=== PATIENT | female | born 1975 | race Caucasian/White ===

== ENCOUNTER 2017-04-06 21:29 | Emergency (ER) | payer SELFPAY ==
[2017-04-06 22:34] LABS: CHLORIDE,CL 102 mmol/L (101-111); SODIUM,NA 135 mmol/L (135-145)
[2017-04-06 22:45] VITALS: BP 119/64
[2017-04-06] MEDS ORDERED: Phenazopyridine 95 MG Tab PO ONE (22:59)
[2017-04-06] MEDS ORDERED: Ondansetron 4 MG Tab.DIS PO ONE (22:59)
[2017-04-06] MEDS ORDERED: Ciprofloxacin 500 MG Tab PO ONE (22:59)
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
== END 2017-04-06 23:15 | disposition home or self-care (01) ==
LOC: DL.ED 21:29
DX: N39.0 Urinary tract infection, site not specified (principal); F41.9 Anxiety disorder, unspecified; F32.9 Major depressive disorder, single episode, unspecified; Z90.49 Acquired absence of other specified parts of digestive tract; F17.210 Nicotine dependence, cigarettes, uncomplicated; Z88.8 Allergy status to other drugs, medicaments and biological substances; Z88.6 Allergy status to analgesic agent
CPT/HCPCS: 36415; 80053; 80305; 81001; 85025; 99283; A9270

== ENCOUNTER 2018-01-10 17:03 | Emergency (ER) | payer SELFPAY ==
[2018-01-10 17:13] VITALS: BP 132/79
[2018-01-10] MEDS ORDERED: Ondansetron 4 MG/2 ML SDV IV ONE (17:34)
[2018-01-10] MEDS ORDERED: HYDROmorphone 1 MG/ML Syringe IVPUSH ONE ×2 (17:34→19:41)
[2018-01-10] MEDS ORDERED: Sodium Chloride 0.9% 10 ML Syringe FLUSH PRN (17:34)
[2018-01-10 18:35] LABS: CHLORIDE,CL 105 mmol/L (101-111); SODIUM,NA 136 mmol/L (135-145)
--- NOTE | 2018-01-10 19:10 | PCM.PRNOTE ---
- Free Text/Narrative Note: Pt here with complaints of back pain. History of nephrolithiasis. ED Rn's unable to obtain IV. Upon arrival, pt is lying in bed, c/o pain 7/10 to back. Very pleasant and tolerant. First attempt with 22 gauge to left hand was unsuccessful. Second attempt, using a 22 gauge angiocath to right hand after cleaning area with alcohol was successful. Flushes with difficulty and pt's hand blanches up to wrist and forearm. Pt says she tastes the saline flush and that this reaction is normal whenever an IV is placed in her hand. Of note, pt has red hair. IV was secured with tegaderm and tape. RN was notified. RN gave medications through IV and pt declared she was having pain relief. Will return if/when this IV fails.
[2018-01-10] MEDS ORDERED: Phenazopyridine 95 MG Tab PO ONE (19:40)
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
== END 2018-01-10 20:07 | disposition home or self-care (01) ==
LOC: DL.ED 17:03
DX: M54.9 Dorsalgia, unspecified (principal); R30.0 Dysuria; R31.29 Other microscopic hematuria; R10.9 Unspecified abdominal pain; F17.210 Nicotine dependence, cigarettes, uncomplicated; Z88.8 Allergy status to other drugs, medicaments and biological substances; Z88.5 Allergy status to narcotic agent
CPT/HCPCS: 36415; 74176; 80053; 81001; 81025; 85025; 96374; 96375; 99284; A9270; J1170; J2405; 36410

== ENCOUNTER 2018-01-25 17:48 | Emergency (ER) | payer SELFPAY ==
[2018-01-25 17:54] VITALS: BP 114/51
[2018-01-25] MEDS ORDERED: Gabapentin 400 MG Cap PO ONE (18:05)
[2018-01-25] MEDS ORDERED: levETIRAcetam 500 MG Tab PO ONE (18:07)
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
== END 2018-01-25 18:16 | disposition home or self-care (01) ==
LOC: DL.ED 17:48
DX: Z76.0 Encounter for issue of repeat prescription (principal); R56.9 Unspecified convulsions; F32.9 Major depressive disorder, single episode, unspecified; F17.210 Nicotine dependence, cigarettes, uncomplicated; Z88.1 Allergy status to other antibiotic agents; Z88.6 Allergy status to analgesic agent
CPT/HCPCS: 99283; A9270

== ENCOUNTER 2019-04-02 22:01 | Emergency (ER) | payer SELFPAY ==
[2019-04-02 22:33] VITALS: BP 142/87
== END 2019-04-02 23:05 | disposition left against medical advice (07) ==
LOC: DL.ED 22:01
DX: Z53.21 Procedure and treatment not carried out due to patient leaving prior to being seen by health care provider (principal)

== ENCOUNTER 2020-05-02 10:37 | Emergency (ER) | payer MEDICAID ==
[2020-05-02 11:01] VITALS: BP 101/48; PULSE 81
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
[2020-05-02] MEDS: Sodium Chloride 0.9% 10 ML Syringe FLUSH PRN (12:00)
[2020-05-02] MEDS: Ondansetron 4 MG/2 ML SDV IV ONE (12:10)
[2020-05-02] MEDS: Piperacillin/Tazobactam 3.375 GM in Sodium Chloride 0.9% 100 ML IV ONE (12:13)
--- NOTE | 2020-05-02 12:14 | PCM.PRNOTE ---
- Free Text/Narrative Note: Iv start Called to ED to assist with IV start. 22ga PIV Right forearm. Blood drawn for lab. Sterile dressing applied. Pt. tolerated well.
[2020-05-02 12:35] LABS: ANION GAP 12.5 mEq/L (7-13); CHLORIDE,CL 104 mmol/L (98-107); SODIUM,NA 140 mmol/L (136-145)
[2020-05-02] MEDS: levETIRAcetam 500 MG Tab PO ONE (13:41)
== END 2020-05-02 13:35 | disposition home or self-care (01) ==
LOC: DL.ED 10:37
DX: N39.0 Urinary tract infection, site not specified (principal); F41.9 Anxiety disorder, unspecified; F32.9 Major depressive disorder, single episode, unspecified; Z88.6 Allergy status to analgesic agent; Z88.1 Allergy status to other antibiotic agents; Z79.899 Other long term (current) drug therapy
CPT/HCPCS: 36415; 80053; 81001; 81025; 85025; 87086; 96365; 96375; 99283; J2405; J2543; J7050

== ENCOUNTER 2020-05-03 00:01 | Inpatient (IN) | payer MEDICAID ==
[2020-05-03] MEDS ORDERED: Ondansetron 4 MG Tab.DIS PO PRN (00:35)
[2020-05-03] MEDS ORDERED: Sodium Chloride 0.9% 10 ML Syringe FLUSH PRN (00:35)
[2020-05-03] MEDS ORDERED: Ibuprofen 400 MG Tab PO PRN (00:35)
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
[2020-05-03] MEDS: Nicotine 14 MG/24 Hr Patch TRDERM SCH ×2 (01:28→09:09)
[2020-05-03] MEDS: Zolpidem 5 MG Tab PO PRN (01:29)
[2020-05-03] MEDS: Sodium Chloride 0.9% 500 ML IV SCH ×2 (02:12→23:58)
[2020-05-03] MEDS ORDERED: Piperacillin/Tazobactam 3.375 GM in Sodium Chloride 0.9% 100 ML IV SCH (04:00)
--- NOTE | 2020-05-03 04:27 | PCM.PRNOTE ---
- Free Text/Narrative Note: IV Start Called to nursing floor to place difficult IV. (Previously placed IV removed upon discharge from ER) Using ultrasound guidance the Left deep cephalic vein was identified. Local 1% lidocaine skin wheal. #20 ga 1.88 inch IV catheter placed into vessel. Blood aspirated. Flushed with normal saline. Clean and dry OP site placed. Secured with additional tape. Patient tolerated well.
[2020-05-03 06:04] LABS: ANION GAP 11.4 mEq/L (7-13); CHLORIDE,CL 104 mmol/L (98-107); SODIUM,NA 141 mmol/L (136-145)
[2020-05-03] MEDS: Heparin Sodium 5,000 Units/ML Vial SUBCUT SCH ×3 (06:05→21:48)
[2020-05-03] MEDS ORDERED: [UNRECOGNIZED DRUG - OTHER] SL SCH (09:00)
[2020-05-03] MEDS ORDERED: BUPRENORPHINE HCL SL SCH (09:00)
[2020-05-03] MEDS ORDERED: NALOXONE HCL SL SCH (09:00)
[2020-05-03] MEDS: Gabapentin 400 MG Cap PO SCH ×3 (09:08→21:16)
[2020-05-03] MEDS: levETIRAcetam 500 MG Tab PO SCH ×2 (09:08→21:15)
[2020-05-03] MEDS: FLUoxetine 10 MG Cap PO SCH (09:08)
[2020-05-03] MEDS ORDERED: ETODOLAC 400 MG PO PRN (09:16)
[2020-05-03] MEDS ORDERED: Buprenorphine 8 MG Tab.SL SL ONE (10:00)
[2020-05-03] MEDS ORDERED: Potassium Chloride 10 MEQ Tab.ER PO ONE (10:00)
[2020-05-03] MEDS: Piperacillin/Tazobactam 3.375 GM in Sodium Chloride 0.9% 100 ML IV SCH ×3 (13:12→23:59)
[2020-05-03] MEDS: Buprenorphine 8 MG Tab.SL SL SCH ×2 (16:32→21:14)
[2020-05-04] MEDS: Zolpidem 5 MG Tab PO PRN (00:48)
[2020-05-04] MEDS: Piperacillin/Tazobactam 3.375 GM in Sodium Chloride 0.9% 100 ML IV SCH ×4 (05:48→23:52)
[2020-05-04] MEDS: Heparin Sodium 5,000 Units/ML Vial SUBCUT SCH ×3 (05:49→21:58)
[2020-05-04 06:39] LABS: ANION GAP 11.2 mEq/L (7-13); CHLORIDE,CL 107 mmol/L (98-107); SODIUM,NA 142 mmol/L (136-145)
[2020-05-04] MEDS: Gabapentin 400 MG Cap PO SCH ×3 (09:35→20:35)
[2020-05-04] MEDS: FLUoxetine 10 MG Cap PO SCH (09:35)
[2020-05-04] MEDS: Buprenorphine 8 MG Tab.SL SL SCH ×3 (09:36→20:35)
[2020-05-04] MEDS: levETIRAcetam 500 MG Tab PO SCH ×2 (09:36→20:34)
[2020-05-04] MEDS: Nicotine 14 MG/24 Hr Patch TRDERM SCH (09:37)
--- NOTE | 2020-05-04 11:16 | PCM.PN ---
- General Info Date of Service: 05/04/20 Subjective Update: less dysuria, no fever no cp, mild lower back pain, no associated numbness, has been chronic Functional Status: Reports: Tolerating Diet - Review of Systems General: Denies: Fever Pulmonary: Denies: Shortness of Breath Cardiovascular: Denies: Chest Pain Gastrointestinal: Denies: Abdominal Pain Genitourinary: Reports: Dysuria, Burning - Patient Data Vitals - Most Recent: Last Vital Signs Temp 97.2 F 05/04/20 08:00 Pulse 55 L 05/04/20 08:00 Resp 18 05/04/20 08:00 BP 89/54 L 05/04/20 08:00 Pulse Ox 98 05/04/20 08:00 Weight - Most Recent: 125 lb I&O - Last 24 Hours: Intake & Output 05/03/20 05/04/20 05/04/20 22:59 06:59 14:59 Intake Total 700 96 550 Output Total 1400 800 Balance -700 96 -250 Lab Results Last 24 Hours: Laboratory Results - last 24 hr 05/04/20 05/04/20 Range/Units 06:12 06:12 WBC 7.1 (5.0-10.0) 10^3/uL RBC 3.69 L (4.2-5.4) 10^6/uL Hgb 11.6 L (12.0-16.0) g/dL Hct 35.9 L (37.0-47.0) % MCV 97.3 (80-100) fL MCH 31.4 (27.0-34.0) pg MCHC 32.3 L (33.0-35.0) g/dL Plt Count 292 (150-450) 10^3/uL Neut % (Auto) 49.9 (42.2-75.2) % Lymph % (Auto) 41.7 (20.5-50.1) % [place] % (Auto) 5.5 (2-8) % Eos % (Auto) 2.5 (1.0-3.0) % Baso % (Auto) 0.4 (0.0-1.0) % Sodium 142 (136-145) mmol/L Potassium 4.2 (3.5-5.1) mmol/L Chloride 107 (98-107) mmol/L Carbon Dioxide 28 (21-32) mmol/L Anion Gap 11.2 (7-13) mEq/L BUN 11 (7-18) mg/dL Creatinine 0.84 (0.55-1.02) mg/dL Est Cr Clr Drug Dosing 65.84 mL/min Estimated GFR (MDRD) > 60 Glucose 101 H (74-99) mg/dL Calcium 7.7 L (8.5-10.1) mg/dL Jaleel Results Last 24 Hours: Microbiology 05/03/20 00:46 Urine Culture - Preliminary Urine, Clean Catch NO GROWTH AFTER 1 DAY Med Orders - Current: Current Medications Buprenorphine (Subutex) 4 mg SL TID [facility] Last Admin: 05/04/20 09:36 Dose: 4 mg Fluoxetine HCl (Prozac) 10 mg PO DAILY [facility] Last Admin: 05/04/20 09:35 Dose: 10 mg Gabapentin (Neurontin) 400 mg PO TID [facility] Last Admin: 05/04/20 09:35 Dose: 400 mg Heparin Sodium (Porcine) (Heparin Sodium) 5,000 units SUBCUT Q8HR [facility] Last Admin: 05/04/20 05:49 Dose: 5,000 units Sodium Chloride (Normal Saline) 500 mls @ 30 mls/hr IV ASDIRECTED [facility] Last Admin: 05/03/20 23:58 Dose: 30 mls/hr Piperacillin Sod/Tazobactam (Sod 3.375 gm/ Sodium Chloride) 100 mls @ 200 mls/ hr IV Q6HR [facility] Last Admin: 05/04/20 05:48 Dose: 100 mls/hr Levetiracetam (Keppra) 750 mg PO BID [facility] Last Admin: 05/04/20 09:36 Dose: 750 mg Miscellaneous Information (Check Patch) 1 ea TRDERM BEDTIME [facility] Last Admin: 05/03/20 21:17 Dose: Not Given Nicotine (Habitrol) 14 mg TRDERM DAILY [facility] Last Admin: 05/04/20 09:37 Dose: 14 mg Non-Formulary Medication (Buprenorphine Hcl/Naloxone Hcl [Buprenorp-Nalox 8-2 Mg Sl Film]) 0.5 tab SL TID [facility] Non-Formulary Medication (Etodolac [Etodolac]) 400 mg PO BID PRN PRN Reason: Pain Ondansetron HCl (Zofran Odt) 4 mg PO Q6H PRN PRN Reason: nausea, able to take PO Last Admin: 05/04/20 09:41 Dose: 4 mg Sodium Chloride (Saline Flush) 10 ml FLUSH ASDIRECTED PRN PRN Reason: Keep Vein Open Zolpidem Tartrate (Ambien) 5 mg PO BEDTIME PRN PRN Reason: Sleep Last Admin: 05/04/20 00:48 Dose: 5 mg Discontinued Medications Buprenorphine (Subutex) 4 mg SL ONETIME ONE Stop: 05/03/20 10:01 Last Admin: 05/03/20 10:11 Dose: 4 mg Piperacillin Sod/Tazobactam (Sod 3.375 gm/ Sodium Chloride) 100 mls @ 200 mls/ hr IV Q6H [facility] Last Admin: 05/03/20 04:32 Dose: 200 mls/hr Ibuprofen (Motrin) 400 mg PO Q8H PRN PRN Reason: Pain (moderate 4-6) Potassium Chloride (Klor-Con 10) 40 meq PO ONETIME ONE Stop: 05/03/20 10:01 Last Admin: 05/03/20 10:11 Dose: 40 meq - Exam General: Alert, Oriented Neck: Supple Lungs: Clear to Auscultation, Normal Respiratory Effort GI/Abdominal Exam: Normal Bowel Sounds, Soft, Non-Tender Extremities: No Pedal Edema Sepsis Event Note - Evaluation Sepsis Screening Result: No Definite Risk - Focused Exam Vital Signs: Vital Signs Temp Pulse Resp BP BP Pulse Ox 05/04/20 08:00 97.2 F 55 L 18 89/54 L 98 05/04/20 00:00 97 F 57 L 16 99/62 98 Date Exam was Performed: 05/04/20 Time Exam was Performed: 11:14 - Problem List & Annotations (1) History of seizure SNOMED Code(s): 687816809 Code(s): Z87.898 - PERSONAL HISTORY OF OTHER SPECIFIED CONDITIONS Status: Acute Current Visit: No (2) UTI, Urinary tract infectious disease SNOMED Code(s): 28338648 Code(s): N39.0 - URINARY TRACT INFECTION, SITE NOT SPECIFIED Status: Acute Current Visit: No - Problem List Review Problem List Initiated/Reviewed/Updated: Yes - My Orders Last 24 Hours: My Active Orders 05/03/20 12:00 Piperacillin/Tazobactam [Zosyn] 3.375 gm Sodium Chloride 0.9% [Normal Saline] 100 ml IV Q6HR 05/03/20 16:00 Buprenorphine [Subutex] 4 mg SL TID 05/03/20 21:00 Check Patch 1 dustin [facility] BEDTIME - Plan Plan:: 44-year-old with the history of IV drug use, seizure disorder. Difficult placement of IV. She was diagnosed with urinary tract infection with Escherichia coli. Escherichia coli is intermediate resistant to Cipro, patient has possible allergic reaction to cephalosporins, did not tolerate Macrodantin due to nausea and vomiting. Failed outpatient administration of the IV Zosyn due to difficulty IV site placement. Urinary tract infection with Escherichia coli urine culture negative for now Treat with IV Zosyn History of seizure disorder Continue Keppra History of IV drug use Continue Suboxone Treat anxiety History of smoking Use nicotine patch DVT prophylaxis with subcutaneous heparin
[2020-05-04] MEDS: Sodium Chloride 0.9% 500 ML IV SCH (21:21)
[2020-05-05] MEDS: Heparin Sodium 5,000 Units/ML Vial SUBCUT SCH (05:54)
[2020-05-05] MEDS: Piperacillin/Tazobactam 3.375 GM in Sodium Chloride 0.9% 100 ML IV SCH ×2 (05:54→11:56)
[2020-05-05] MEDS: Buprenorphine 8 MG Tab.SL SL SCH (09:08)
[2020-05-05] MEDS: levETIRAcetam 500 MG Tab PO SCH (09:08)
[2020-05-05] MEDS: Gabapentin 400 MG Cap PO SCH (09:09)
[2020-05-05] MEDS: FLUoxetine 10 MG Cap PO SCH (09:09)
[2020-05-05] MEDS: Nicotine 14 MG/24 Hr Patch TRDERM SCH (09:11)
--- NOTE | 2020-05-05 09:38 | PCM.DCSUM1 ---
Discharge Summary - Hospital Course Free Text/Narrative:: 44-year-old with the history of IV drug use, seizure disorder. Difficult placement of IV. She was diagnosed with urinary tract infection with Escherichia coli. Escherichia coli is intermediate resistant to Cipro, patient has possible allergic reaction to cephalosporins, did not tolerate Macrodantin due to nausea and vomiting. Failed outpatient administration of the IV Zosyn due to difficulty IV site placement. Urinary tract infection with Escherichia coli urine culture negative for now Treated with IV Zosyn History of seizure disorder Continue Keppra History of IV drug use Continue Suboxone Treat anxiety History of smoking Use nicotine patch Diagnosis: Stroke: No - Discharge Data Discharge Date: 05/05/20 Discharge Disposition: Home, Self-Care 01 Condition: Good - Referral to Home Health Primary Care Physician: Dorothy Marina MD - Discharge Diagnosis/Problem(s) (1) History of seizure SNOMED Code(s): 484135601 ICD Code: Z87.898 - PERSONAL HISTORY OF OTHER SPECIFIED CONDITIONS Status: Acute Current Visit: No (2) UTI, Urinary tract infectious disease SNOMED Code(s): 02814469 ICD Code: N39.0 - URINARY TRACT INFECTION, SITE NOT SPECIFIED Status: Acute Current Visit: No - Patient Instructions Diet: Heart Healthy Diet Activity: As Tolerated - Discharge Plan Home Medications: Home Meds levETIRAcetam [Keppra] 750 mg PO BID 01/10/18 [History] FLUoxetine [PROzac] 10 mg PO DAILY 07/03/19 [History] Buprenorphine HCl/Naloxone HCl [Buprenorp-Nalox 8-2 mg Sl Film] 0.5 tab SL TID 07/19/19 [History] Etodolac 400 mg PO BID PRN 07/19/19 [History] Gabapentin [Neurontin] 400 mg PO TID 05/02/20 [History] Oxygen Therapy Mode: Room Air Patient Handouts: Urinary Tract Infection, Adult, [id number] - Discharge Summary/Plan Comment DC Time >30 min.: No - General Info Date of Service: 05/05/20 Functional Status: Reports: Pain Controlled (flank pain resolved) - Review of Systems General: Denies: Fever, Weakness Pulmonary: Denies: Shortness of Breath Cardiovascular: Denies: Chest Pain, Edema Gastrointestinal: Denies: Abdominal Pain Genitourinary: Denies: Dysuria - Patient Data Vitals - Most Recent: Last Vital Signs Temp 98.7 F 05/05/20 07:30 Pulse 59 L 05/05/20 07:30 Resp 12 05/05/20 07:30 BP 105/61 05/05/20 07:30 Pulse Ox 99 05/05/20 07:30 Weight - Most Recent: 125 lb I&O - Last 24 hours: Intake & Output 05/04/20 05/05/20 05/05/20 22:59 06:59 14:59 Intake Total 700 1110 105 Output Total 1300 900 Balance -600 210 105 JOANN Results - Last 24 hrs: Microbiology 05/03/20 00:46 Urine Culture - Final Urine, Clean Catch NO GROWTH AFTER 2 DAYS Med Orders - Current: Current Medications Buprenorphine (Subutex) 4 mg SL TID [facility] Last Admin: 05/05/20 09:08 Dose: 4 mg Fluoxetine HCl (Prozac) 10 mg PO DAILY [facility] Last Admin: 05/05/20 09:09 Dose: 10 mg Gabapentin (Neurontin) 400 mg PO TID [facility] Last Admin: 05/05/20 09:09 Dose: 400 mg Heparin Sodium (Porcine) (Heparin Sodium) 5,000 units SUBCUT Q8HR [facility] Last Admin: 05/05/20 05:54 Dose: 5,000 units Sodium Chloride (Normal Saline) 500 mls @ 30 mls/hr IV ASDIRECTED [facility] Last Admin: 05/04/20 21:21 Dose: 30 mls/hr Piperacillin Sod/Tazobactam (Sod 3.375 gm/ Sodium Chloride) 100 mls @ 200 mls/ hr IV Q6HR [facility] Last Infusion: 05/05/20 07:00 Dose: Infused Levetiracetam (Keppra) 750 mg PO BID [facility] Last Admin: 05/05/20 09:08 Dose: 750 mg Miscellaneous Information (Check Patch) 1 ea TRDERM BEDTIME [facility] Last Admin: 05/04/20 20:34 Dose: Not Given Nicotine (Habitrol) 14 mg TRDERM DAILY [facility] Last Admin: 05/05/20 09:11 Dose: Not Given Non-Formulary Medication (Buprenorphine Hcl/Naloxone Hcl [Buprenorp-Nalox 8-2 Mg Sl Film]) 0.5 tab SL TID [facility] Non-Formulary Medication (Etodolac [Etodolac]) 400 mg PO BID PRN PRN Reason: Pain Ondansetron HCl (Zofran Odt) 4 mg PO Q6H PRN PRN Reason: nausea, able to take PO Last Admin: 05/04/20 09:41 Dose: 4 mg Sodium Chloride (Saline Flush) 10 ml FLUSH ASDIRECTED PRN PRN Reason: Keep Vein Open Zolpidem Tartrate (Ambien) 5 mg PO BEDTIME PRN PRN Reason: Sleep Last Admin: 05/04/20 00:48 Dose: 5 mg Discontinued Medications Buprenorphine (Subutex) 4 mg SL ONETIME ONE Stop: 05/03/20 10:01 Last Admin: 05/03/20 10:11 Dose: 4 mg Piperacillin Sod/Tazobactam (Sod 3.375 gm/ Sodium Chloride) 100 mls @ 200 mls/ hr IV Q6H [facility] Last Admin: 05/03/20 04:32 Dose: 200 mls/hr Ibuprofen (Motrin) 400 mg PO Q8H PRN PRN Reason: Pain (moderate 4-6) Potassium Chloride (Klor-Con 10) 40 meq PO ONETIME ONE Stop: 05/03/20 10:01 Last Admin: 05/03/20 10:11 Dose: 40 meq - Exam General: Reports: Alert, Oriented Neck: Reports: Supple Lungs: Reports: Clear to Auscultation, Normal Respiratory Effort Cardiovascular: Reports: Regular Rate, Regular Rhythm GI/Abdominal Exam: Normal Bowel Sounds, Soft, Non-Tender Skin: Reports: Warm, Dry Neurological: Reports: No New Focal Deficit Psy/Mental Status: Reports: Alert, Normal Affect, Normal Mood
[2020-05-05 12:17] VITALS: BP 102/62; PULSE 56
== END 2020-05-05 14:10 | disposition home or self-care (01) | DRG 690 ==
LOC: EEVIPCON 00:01 → DL.MS 00:01
PROVIDERS: ADMIT Internal Medicine; ATTEND Internal Medicine
DX: N39.0 Urinary tract infection, site not specified (principal); Z16.29 Resistance to other single specified antibiotic; G40.909 Epilepsy, unspecified, not intractable, without status epilepticus; B96.20 Unspecified Escherichia coli [E. coli] as the cause of diseases classified elsewhere; F41.9 Anxiety disorder, unspecified; F17.210 Nicotine dependence, cigarettes, uncomplicated; F32.9 Major depressive disorder, single episode, unspecified; F43.10 Post-traumatic stress disorder, unspecified; Z88.5 Allergy status to narcotic agent; Z88.1 Allergy status to other antibiotic agents; Z79.899 Other long term (current) drug therapy; Z87.442 Personal history of urinary calculi; Z90.49 Acquired absence of other specified parts of digestive tract
CPT/HCPCS: 36415; 80048; 85025; 85027; 87086; A9270-GY; J1644; J2543; J7040; J7050

== ENCOUNTER 2021-12-14 16:09 | Emergency (ER) | payer MEDICAID ==
[2021-12-14 17:31] VITALS: BP 104/57; PULSE 79
[2021-12-14 17:38] LABS: CORONAVIRUS COVID-19 NAA NEGATIVE (NEGATIVE)
== END 2021-12-14 17:49 | disposition left against medical advice (07) ==
LOC: DL.ED 16:09
DX: R50.9 Fever, unspecified (principal); R51.9 Headache, unspecified; F41.9 Anxiety disorder, unspecified; Z53.21 Procedure and treatment not carried out due to patient leaving prior to being seen by health care provider; Z20.822 Contact with and (suspected) exposure to COVID-19
CPT/HCPCS: 0240U

== ENCOUNTER 2022-01-24 08:19 | Emergency (ER) | payer MEDICAID ==
[2022-01-24] MEDS ORDERED: Sodium Chloride 0.9% 1,000 ML IV ONE (08:33)
[2022-01-24 08:35] VITALS: BP 107/64; PULSE 88
[2022-01-24] MEDS ORDERED: levETIRAcetam in NaCl (iso-os) 1,000 MG in Premix Bag 1 BAG IV ONE ×2 (08:40)
[2022-01-24] MEDS ORDERED: Metoclopramide 10 MG/2 ML SDV IVPUSH ONE (08:41)
[2022-01-24] MEDS ORDERED: Promethazine 25 MG/ML SDV IM ONE (09:00)
[2022-01-24 09:15] LABS: CORONAVIRUS COVID-19 NAA NEGATIVE (NEGATIVE)
[2022-01-24 09:18] LABS: CHLORIDE,CL 99 mmol/L (98-107); SODIUM,NA 138 mmol/L (136-145)
== END 2022-01-24 11:50 | disposition home or self-care (01) ==
LOC: DL.ED 08:19
DX: K52.9 Noninfective gastroenteritis and colitis, unspecified (principal); R11.2 Nausea with vomiting, unspecified; Z88.5 Allergy status to narcotic agent; Z88.1 Allergy status to other antibiotic agents; Z88.6 Allergy status to analgesic agent; Z88.8 Allergy status to other drugs, medicaments and biological substances; Z20.822 Contact with and (suspected) exposure to COVID-19
CPT/HCPCS: 0240U; 36415; 80053; 83735; 85025; 96372; 96374; 99284; J1953; J2550; J7030

== ENCOUNTER 2022-01-24 20:06 | Emergency (ER) | payer MEDICAID ==
[2022-01-24] MEDS ORDERED: Promethazine 25 MG Tab PO ONE (20:07)
[2022-01-24] MEDS ORDERED: Sodium Chloride 0.9% 10 ML Syringe FLUSH PRN (20:31)
[2022-01-24] MEDS ORDERED: Promethazine 25 MG/ML SDV IM ONE (20:32)
[2022-01-24 21:55] LABS: ANION GAP 16.4 mEq/L (7-13); CHLORIDE,CL 104 mmol/L (98-107); SODIUM,NA 140 mmol/L (136-145)
[2022-01-24] MEDS ORDERED: Sodium Chloride 0.9% 1,000 ML IV SCH (22:45)
[2022-01-24] MEDS ORDERED: Sodium Chloride 0.9% 1,000 ML IV ONE (23:13)
[2022-01-24] MEDS ORDERED: Ketorolac 30 MG/ML SDV IVPUSH ONE (23:13)
[2022-01-25] MEDS ORDERED: Promethazine 25 MG Tab ONE (01:32)
[2022-01-25 01:45] VITALS: BP 90/57; PULSE 69
== END 2022-01-25 01:48 | disposition home or self-care (01) ==
LOC: DL.ED 20:06
DX: E86.0 Dehydration (principal); T50.Z95A Adverse effect of other vaccines and biological substances, initial encounter; Z88.1 Allergy status to other antibiotic agents; Z88.8 Allergy status to other drugs, medicaments and biological substances; Z88.6 Allergy status to analgesic agent; Z72.0 Tobacco use
CPT/HCPCS: 36415; 80053; 81001; 82150; 83605; 83690; 84484; 85025; 85379; 86140; 93005; 96372; 96374; 99285-25; A9270-GY; J1885; J2550; J7030

== ENCOUNTER 2022-03-13 19:33 | Emergency (ER) | payer MEDICAID ==
[2022-03-13 19:52] VITALS: BP 120/58; PULSE 82
[2022-03-13] MEDS ORDERED: Ketorolac 30 MG/ML SDV IM ONE (19:55)
[2022-03-13] MEDS ORDERED: Promethazine 25 MG/ML SDV IM ONE (19:55)
[2022-03-13 20:44] LABS: CORONAVIRUS COVID-19 NAA NEGATIVE (NEGATIVE)
[2022-03-13] MEDS ORDERED: Oseltamivir 75 MG Cap PO ONE (20:54)
== END 2022-03-13 21:07 | disposition home or self-care (01) ==
LOC: DL.ED 19:33
DX: J10.1 Influenza due to other identified influenza virus with other respiratory manifestations (principal); Z88.1 Allergy status to other antibiotic agents; Z88.8 Allergy status to other drugs, medicaments and biological substances; Z88.6 Allergy status to analgesic agent; Z20.822 Contact with and (suspected) exposure to COVID-19
CPT/HCPCS: 0240U; 96372; 99283; J1885; J2550

== ENCOUNTER 2022-03-16 10:38 | Emergency (ER) | payer MEDICAID ==
[2022-03-16 11:22] VITALS: BP 145/91; PULSE 55
[2022-03-16] MEDS ORDERED: Sodium Chloride 0.9% 1,000 ML IV ONE ×2 (11:56→12:57)
[2022-03-16] MEDS ORDERED: Ondansetron 4 MG/2 ML SDV IVPUSH ONE (12:11)
[2022-03-16] MEDS: Metoclopramide 10 MG/2 ML SDV IVPUSH ONE ×2 (12:22→13:48)
[2022-03-16 12:47] LABS: ANION GAP 12.7 mEq/L (7-13); CHLORIDE,CL 102 mmol/L (98-107); SODIUM,NA 139 mmol/L (136-145)
[2022-03-16 12:49] LABS: ACETAMINOPHEN < 1 ug/mL (10-30 (Therapeutic))
[2022-03-16 13:41] LABS: METHAMPHETAMINES,URINE NEGATIVE (NEGATIVE)
[2022-03-16 13:42] LABS: AMPHETAMINES,URINE NEGATIVE (NEGATIVE); BARBITURATES,URINE NEGATIVE (NEGATIVE); BENZODIAZEPINE,URINE NEGATIVE (NEGATIVE); MDMA (ECSTASY), URINE NEGATIVE (NEGATIVE); METHADONE,URINE NEGATIVE (NEGATIVE); OPIATES,URINE NEGATIVE (NEGATIVE); OXYCODONE,URINE NEGATIVE (NEGATIVE); PHENCYCLIDINE,URINE NEGATIVE (NEGATIVE); TCA,URINE NEGATIVE (NEGATIVE)
[2022-03-16] MEDS ORDERED: Metoclopramide 10 MG/2 ML SDV ONE (13:45)
== END 2022-03-16 16:10 | disposition home or self-care (01) ==
LOC: DL.ED 10:38
DX: J10.1 Influenza due to other identified influenza virus with other respiratory manifestations (principal); R11.2 Nausea with vomiting, unspecified; Z88.1 Allergy status to other antibiotic agents; Z88.8 Allergy status to other drugs, medicaments and biological substances; Z72.0 Tobacco use
CPT/HCPCS: 36415; 80053; 80143; 80179; 80305; 80307; 81001; 82140; 82150; 83605; 83690; 83735; 85025; 96374; 96375; 99283; 99284; J2405; J2765; J7030

== ENCOUNTER 2022-03-19 11:51 | Emergency (ER) | payer MEDICAID ==
[2022-03-19 12:46] VITALS: BP 141/93; PULSE 74
== END 2022-03-19 13:00 | disposition left against medical advice (07) ==
LOC: DL.ED 11:51
DX: Z53.21 Procedure and treatment not carried out due to patient leaving prior to being seen by health care provider (principal)

== ENCOUNTER 2024-01-10 13:54 | Emergency (ER) | payer MEDICAID ==
[2024-01-10 14:15] VITALS: BP 132/86; PULSE 88
[2024-01-10 14:23] LABS: APPEARANCE,URINE CLOUDY (CLEAR); BILIRUBIN,URINE NEGATIVE (NEGATIVE); COLOR,URINE YELLOW (YELLOW); GLUCOSE,URINE NEGATIVE (NEGATIVE); KETONES,URINE NEGATIVE (NEGATIVE); LEUKOCYTE ESTERASE,URINE SMALL (NEGATIVE); NITRITE,URINE NEGATIVE (NEGATIVE); OCCULT BLOOD,URINE TRACE-INTACT (NEGATIVE); PROTEIN,URINE NEGATIVE (NEGATIVE); UROBILINOGEN,URINE 0.2 mg/dL (0.2-1.0)
[2024-01-10 14:44] LABS: BACTERIA,URINE MANY /HPF (0-FEW/HPF); EPITHELIAL CELLS,URINE MANY /HPF (NOT SEEN); WBC,URINE 30-40 /HPF (0-5/HPF)
[2024-01-10 14:59] LABS: BASOPHILS PERCENT AUTO 0.2 % (0.0-1.0); EOSINOPHILS PERCENT AUTO 0.5 % (1.0-3.0); HEMATOCRIT 39.3 % (37.0-47.0); HEMOGLOBIN 13.1 g/dL (12.0-16.0); LYMPHOCYTES PERCENT AUTO 11.3 % (20.5-50.1); MEAN CORPUSCULAR HEMOGLOBIN 31.2 pg (27.0-34.0); MEAN CORPUSCULAR HGB CONC 33.3 g/dL (33.0-35.0); MEAN CORPUSCULAR VOLUME 93.6 fL (80-100); MONOCYTES PERCENT AUTO 6.6 % (2-8); NEUTROPHILS PERCENT AUTO 81.4 % (42.2-75.2); PLATELET COUNT,PLT 238 10^3/uL (150-450); WHITE BLOOD CELL COUNT,WBC 4.2 10^3/uL (5.0-10.0)
[2024-01-10 15:19] LABS: ALBUMIN 2.9 g/dL (3.4-5.0); ANION GAP 9.1 mEq/L (7-13); BILIRUBIN TOTAL 0.2 mg/dL (0.2-1.0); BUN/CREATININE RATIO 7.6 (No establ ref range); CREATININE 0.79 mg/dL (0.55-1.02); EST CRCL DRUG DOSING (CG) 67.14 mL/min; POTASSIUM,K 3.1 mmol/L (3.5-5.1); PROTEIN TOTAL,TP 5.9 g/dL (6.4-8.2)
[2024-01-10 15:21] LABS: A/G RATIO 0.97
[2024-01-12 12:46] LABS: C.TRACHOMATIS BY TMA Negative (Negative); M GENITALIUM Negative (Negative); M GENITALIUM SOURCE Urine; N.GONORRHOEAE BY TMA Negative (Negative); SOURCE Urine
== END 2024-01-10 16:30 | disposition home or self-care (01) ==
LOC: DL.ED 13:54
DX: N76.0 Acute vaginitis (principal); R31.29 Other microscopic hematuria; E87.6 Hypokalemia; R10.9 Unspecified abdominal pain; Z88.1 Allergy status to other antibiotic agents; Z88.5 Allergy status to narcotic agent; Z88.8 Allergy status to other drugs, medicaments and biological substances
CPT/HCPCS: 36415; 80053; 81001; 81025; 83605; 85025; 87086; 87088; 87186; 87491; 87563; 87591; 99284